=== PATIENT | female | born 2000 | race Caucasian/White ===

== ENCOUNTER 2022-09-14 13:59 | Emergency (ER) | payer OTHER ==
[2022-09-14 15:15] LABS: Pregnancy Test - Urine (BHCG) Negative (Negative); Pregu Control Background? CLEAR/WHITE (CLR/WHITE); Pregu Control Bar Appear? YES (CONTROL BAR)
== END 2022-09-14 16:28 | disposition home or self-care (01) ==
LOC: MADERS 13:59
DX: R07.81 Pleurodynia (principal); M25.552 Pain in left hip; R10.2 Pelvic and perineal pain; M54.50 Low back pain, unspecified
CPT/HCPCS: 71046; 72170; 81025